=== PATIENT | female | born 2005 | race Two or more races ===

== ENCOUNTER → 2025-02-14 | Outpatient (CLI) | payer BC, SELFPAY ==
--- NOTE | 2025-02-14 10:23 | XR_ITS ---
Examination: Lumbar spine, 5 views Technique: Lumbar spine AP, lateral, coned lateral lower lumbar spine, bilateral obliques 5 views Exam date and time: February 14, 2025 1052 hours INDICATIONS: Low back pain beginning 4 months ago FINDINGS: Satisfactory alignment lumbar vertebral bodies Transitional L5 vertebral body taking into account rudimentary ribs T12 No lumbar fracture or significant arthritic change IMPRESSION: No lumbar fracture or significant arthritic change
== END | disposition home or self-care (01) ==
PROVIDERS: PCP Family Medicine; Referring Provider Family Medicine; Visit Provider Family Medicine
DX: M54.50 Low back pain, unspecified (principal)
CPT/HCPCS: 72110